=== PATIENT | female | born 1955 | race Caucasian/White ===

== ENCOUNTER 2019-01-24 08:17 | Day surgery (SDC) | payer OTHER ==
[~2019-01-24 08:17] MED LIST: Bupivacaine 0.5% 10 ML SDV ONE; Lactated Ringers 1,000 ML IV SCH; Lidocaine 1% 20 ML MDV ONE; Lidocaine 2% 5 ML SDV ONE; Propofol 200 MG/20 ML SDV ONE; Sodium Chloride 0.9% 10 ML SDV IV PRN; Sodium Chloride 0.9% 10 ML Syringe FLUSH PRN; Sodium Chloride 0.9% 2.5 ML Syringe FLUSH PRN; ceFAZolin 2 GM in Premix Bag 1 BAG IV ONE; fentaNYL 100 MCG/2 ML SDV ONE
--- NOTE | 2019-01-24 09:06 | PCM.PREANE ---
Preanesthetic Assessment - Anesthesia/Transfusion/Family Hx Anesthesia History: Prior Anesthesia Without Reaction Family History of Anesthesia Reaction: No Transfusion History: No Prior Transfusion(s) Intubation History: Unknown - Review of Systems General: No Symptoms Pulmonary: No Symptoms Cardiovascular: No Symptoms Gastrointestinal: No Symptoms Neurological: No Symptoms Other: Reports: None - Physical Assessment Height: 5 ft 2 in Weight: 88.904 kg ASA Class: 3 Mental Status: Alert & Oriented x3 Airway Class: Mallampati = 3 Dentition: Reports: Dentures (upper), Partial (lower) Thyro-Mental Finger Breadths: 2 Mouth Opening Finger Breadths: 3 ROM/Head Extension: Limited/Partial Lungs: Clear to Auscultation, Normal Respiratory Effort Cardiovascular: Regular Rate, Regular Rhythm - Allergies Allergies/Adverse Reactions: Allergies Allergy/AdvReac Type Severity Reaction Status Date / Time prednisone Allergy Numbness Verified 01/21/19 13:41 - Blood Blood Available: No - Anesthesia Plan Pre-Op Medication Ordered: None - Acknowledgements Anesthesia Type Planned: MAC Pt an Appropriate Candidate for the Planned Anesthesia: Yes Alternatives and Risks of Anesthesia Discussed w Pt/Guardian: Yes Pt/Guardian Understands and Agrees with Anesthesia Plan: Yes PreAnesthesia Questionnaire HEENT History: Reports: Other (See Below) Other HEENT History: top denture, bottom partial Cardiovascular History: Reports: Hypertension Other Cardiovascular History: pts daughter states her mother "takes metoprolol and simvastatin because she does not make enough good cholesterol, not because she has high BP or high cholesterol".H/O stroke '13 lost function of right arm, left foot drop and dysphasia, some memory loss and communication problems. Walks with the help of other person. Also wears rt. leg brace. 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: Musculoskeletal History: Reports: Other (See Below) Other Musculoskeletal History: rt sided weakness due to stroke, uses w/c but is able to assist in transfer from w/c to bed Neurological History: Reports: CVA, Other (See Below) Other Neuro History: stroke in 2013, rt sided weakness and aphasia Psychiatric History: Reports: None Endocrine/Metabolic History: Reports: Obesity/BMI 30+ Hematologic History: Reports: None Immunologic History: Reports: None Oncologic (Cancer) History: Reports: Lung Dermatologic History: Reports: None - Past Surgical History Head Surgeries/Procedures: Reports: None HEENT Surgical History: Reports: None Cardiovascular Surgical History: Reports: None Respiratory Surgical History: Reports: None GI Surgical History: Reports: None Female Surgical History: Reports: Tubal Ligation Endocrine Surgical History: Reports: None Neurological Surgical History: Reports: None Musculoskeletal Surgical History: Reports: None Oncologic Surgical History: Reports: Other (See Below) Other Oncologic Surgeries/Procedures: lt. side paul-a- cath placement 06/10 Dermatological Surgical History: Reports: None - SUBSTANCE USE Smoking Status *Q: Former Smoker Tobacco Use Within Last Twelve Months: No Recreational Drug Use History: No - HOME MEDS Home Medications: Home Meds Metoprolol Tartrate 1 tab PO BID 04/07/14 [History] Simvastatin [Zocor] 1 tab PO DAILY 04/07/14 [History] Albuterol Sulfate 1 inhalation NEB Q4H 01/21/19 [History] Budesonide [Pulmicort] 1 inhalation NEB BID 01/21/19 [History] Warfarin Sodium [Jantoven] 2.5 mg PO DAILY 01/21/19 [History] - CURRENT (IN HOUSE) MEDS Current Meds: Current Medications Lactated Ringer's (Ringers, Lactated) 1,000 mls @ 125 mls/hr IV ASDIRECTED ELIZABETH Sodium Chloride (Saline Flush) 10 ml FLUSH ASDIRECTED PRN PRN Reason: Keep Vein Open Sodium Chloride (Saline Flush) 2.5 ml FLUSH ASDIRECTED PRN PRN Reason: Keep Vein Open Sodium Chloride (Normal Saline) 10 ml IV ASDIRECTED PRN PRN Reason: IV Use Discontinued Medications Bupivacaine HCl (Sensorcaine-Mpf 0.5%) Confirm Administered Dose 10 ml .ROUTE .STK-MED ONE Stop: 01/24/19 07:47 Fentanyl (Sublimaze) Confirm Administered Dose 100 mcg .ROUTE .STK-MED ONE Stop: 01/24/19 06:52 Cefazolin Sodium/Dextrose 2 gm (/ Premix) 50 mls @ 100 mls/hr IV ONETIME ONE Stop: 01/18/19 15:37 Lidocaine (Xylocaine-Mpf 2%) Confirm Administered Dose 5 ml .ROUTE .STK-MED ONE Stop: 01/24/19 06:52 Lidocaine HCl (Xylocaine 1%) Confirm Administered Dose 20 ml .ROUTE .STK-MED ONE Stop: 01/24/19 07:47 Propofol (Diprivan 20 Ml) Confirm Administered Dose 200 mg .ROUTE .STK-MED ONE Stop: 01/24/19 06:52
[2019-01-24] MEDS ORDERED: ceFAZolin/Dextrose,Iso-Osmotic 2 GM/50 ML Duplex Bag IV ONE (10:14)
[2019-01-24] MEDS ORDERED: Octyl 2-Cyanoacrylate 1 Tube ONE (10:37)
--- NOTE | 2019-01-24 10:45 | PCM.OPNOTE ---
- General Post-Op/Procedure Note Date of Surgery/Procedure: 01/24/19 Operative Procedure(s): port-a-cath removal Findings: port-a-cath intact Pre Op Diagnosis: lung cancer Post-Op Diagnosis: same Anesthesia Technique: MAC Primary Surgeon: Moon Nielsen Pathology: intact port-a-cath Fluid Replacement, Intraop: 500 EBL in mLs: 2 Condition: Good
[2019-01-24 11:00] VITALS: BP 93/64; PULSE 82
--- NOTE | 2019-01-24 11:27 | PCM.POSTAN ---
POST ANESTHESIA ASSESSMENT - MENTAL STATUS Mental Status: Alert, Oriented - RESPIRATORY Respiratory Status: Respiratory Rate WNL, Airway Patent, O2 Saturation Stable - CARDIOVASCULAR CV Status: Pulse Rate WNL, Blood Pressure Stable - GASTROINTESTINAL GI Status: No Symptoms - PAIN Pain Score: 0 - POST OP HYDRATION Hydration Status: Adequate & Stable - OBSERVATIONS Free Text/Narrative:: No anesthesia problems, patient skipped recovery room stage of postoperative care
--- NOTE | 2019-01-24 15:11 | OR ---
SURGEON: MOON NIELSEN MD DATE OF PROCEDURE: 01/24/2019 PREOPERATIVE DIAGNOSIS: Lung cancer. POSTOPERATIVE DIAGNOSIS: Lung cancer. PROCEDURE PERFORMED: Port-A-Cath removal. PRIMARY SURGEON: Moon Nielsen MD. PULP PILER: salon shampoo assistant: Zehra Marie DO. ANESTHESIA: MAC. FLUIDS: 500 mL crystalloid. ESTIMATED BLOOD LOSS: 2 mL. FINDINGS: Intact left internal jugular Port-A-Cath. COMPLICATIONS: None. INDICATIONS: The patient is a 63-year-old female who has completed chemotherapy and treatment for lung cancer. She has been cleared for removal of her Port-A-Cath. The patient and I discussed the procedure, expected perioperative course, and risks including bleeding, infection, or damage to surrounding structures. The patient verbalized understanding and wishes to proceed. PROCEDURE IN DETAIL: The patient was brought into the OR and placed on the OR table in supine position. A time-out was completed verifying the patient's name, age, date of , allergies, and procedure to be performed. Monitored anesthesia care was induced. The chest and neck were prepped and draped in usual standard fashion. I anesthetized the area overlying the Port-A-Cath device on the anterior chest wall with 0.5% Marcaine plain. A 15 blade was used to open up the patient's previous scar. Cautery was then used to dissect down through the level of the subcutaneous fat down to the Port-A-Cath device. The scar capsule was opened using electrocautery. The patient's previous Prolene stitches were removed and passed off the field. The last attachments of the scar capsule were taken down. Pressure was held on the left side of the lower neck and the Port-A-Cath device removed. It was passed off the field and sent to pathology. Pressure was held on the neck for approximately 1 minute. I then inspected my operative field and appeared to be hemostatic. Cautery was used to achieve local hemostasis. The wound was then closed with interrupted 3-0 Vicryl in the subcutaneous fat layer and the skin was closed with running 4-0 Monocryl stitch. Dermabond and a sterile dressing were applied. All counts were complete and correct at the end of the case. The patient was awoken and taken to the PACU in stable condition. CYNTHIA / KARINA /[id number]
== END 2019-01-24 11:30 | disposition home or self-care (01) ==
LOC: MW.SDS 08:17
PROVIDERS: ATTEND Surgery
DX: Z45.2 Encounter for adjustment and management of vascular access device (principal); E78.5 Hyperlipidemia, unspecified; C34.10 Malignant neoplasm of upper lobe, unspecified bronchus or lung; J44.9 Chronic obstructive pulmonary disease, unspecified; E66.9 Obesity, unspecified; Z68.35 Body mass index [BMI] 35.0-35.9, adult; Z87.891 Personal history of nicotine dependence; Z79.01 Long term (current) use of anticoagulants; Z88.8 Allergy status to other drugs, medicaments and biological substances; Z79.899 Other long term (current) drug therapy
CPT/HCPCS: 36590; A9270; J0690; J2001; J2704; J3010; J3490; J7120; 00300; 88300

== ENCOUNTER 2023-10-21 19:35 | Emergency (ER) | payer MEDICARE, OTHER ==
[2023-10-21] MEDS: Sodium Chloride 0.9% 1,000 ML IV ONE (20:45)
[2023-10-21] MEDS: Morphine 4 MG/ML Syringe IVPUSH ONE (20:46)
[2023-10-21] MEDS: Ondansetron 4 MG/2 ML SDV IVPUSH ONE (20:46)
[2023-10-21] MEDS: Ketorolac 30 MG/ML SDV IVPUSH ONE (20:46)
[2023-10-21 20:56] LABS: BASOPHILS ABSOLUTE AUTO 0.04 K/uL (0.00-0.20); BASOPHILS PERCENT AUTO 0.5 % (0.0-1.0); EOSINOPHILS ABSOLUTE AUTO 0.06 K/uL (0.00-0.45); EOSINOPHILS PERCENT AUTO 0.7 % (0.0-6.0); HEMATOCRIT 39.4 % (37.0-47.0); HEMOGLOBIN 12.9 g/dL (12.0-16.0); IMMATURE GRAN ABSOLUTE AUTO 0.03 K/uL (0.00-0.05); IMMATURE GRAN PERCENT AUTO 0.3 % (0.0-0.4); LYMPHOCYTES ABSOLUTE AUTO 1.77 K/uL (1.00-4.80); LYMPHOCYTES PERCENT AUTO 20.5 % (24.0-44.0); MEAN CORPUSCULAR HEMOGLOBIN 29.8 pg (28.0-32.0); MEAN CORPUSCULAR HGB CONC 32.7 g/dL (32.0-36.0); MEAN PLATELET VOLUME 8.5 fL (9.4-12.3); MONOCYTES ABSOLUTE AUTO 0.89 K/uL (0.00-0.80); MONOCYTES PERCENT AUTO 10.3 % (0.0-8.0); NEUTROPHILS ABSOLUTE AUTO 5.83 K/uL (1.80-7.70); NEUTROPHILS PERCENT AUTO 67.7 % (41.0-71.0); PLATELET COUNT,PLT 334 K/uL (150-400); RED BLOOD CELL COUNT 4.33 M/uL (4.10-5.30); WHITE BLOOD CELL COUNT,WBC 8.62 K/uL (3.9-11.3)
[2023-10-21] MEDS: HYDROmorphone 0.5 MG/0.5 ML Syringe IVPUSH ONE (21:10)
[2023-10-21 21:24] LABS: A/G RATIO 0.6 (0.9-1.6); BILIRUBIN TOTAL 0.1 mg/dL (0.2-1.0); CALCIUM 9.4 mg/dL (8.5-10.1); CARBON DIOXIDE,CO2 27.3 mmol/L (21.0-32.0); EST CRCL DRUG DOSING (CG) 41.99 mL/min; MAGNESIUM 1.8 mg/dL (1.8-2.4); POTASSIUM,K 3.7 mmol/L (3.5-5.1); PROTEIN TOTAL,TP 8.1 g/dL (6.4-8.2)
[2023-10-21 21:25] LABS: LACTIC ACID 1.7 mmol/L (0.4-2.0)
[2023-10-21] MEDS: Iopamidol 755 MG/ML 500 ML Multipack Bottle IVPUSH ONE (22:46)
[2023-10-21 23:39] LABS: APPEARANCE,URINE CLEAR; BILIRUBIN,URINE NEGATIVE (NEGATIVE); COLOR,URINE YELLOW; GLUCOSE,URINE NEGATIVE (NEGATIVE); KETONES,URINE TRACE mg/dL (NEGATIVE); LEUKOCYTE ESTERASE,URINE NEGATIVE (NEGATIVE); NITRITE,URINE POSITIVE (NEGATIVE); OCCULT BLOOD,URINE TRACE-INTACT (NEGATIVE); PROTEIN,URINE NEGATIVE (NEGATIVE); UROBILINOGEN,URINE 0.2 EU/dL (<2.0)
[2023-10-21 23:46] LABS: BACTERIA,URINE FEW (NEGATIVE); EPITHELIAL CELLS,URINE FEW (NONE-FEW); WBC,URINE 0-2 (0-5/HPF)
[2023-10-22] MEDS: cefTRIAXone 1 GM in Sodium Chloride 0.9% 50 ML IV ONE (00:33)
[2023-10-22 01:19] VITALS: BP 107/74; PULSE 105
== END 2023-10-22 01:17 | disposition home or self-care (01) ==
LOC: MW.ED 19:35
DX: N39.0 Urinary tract infection, site not specified (principal); M54.50 Low back pain, unspecified; I10 Essential (primary) hypertension; E66.9 Obesity, unspecified; Z68.33 Body mass index [BMI] 33.0-33.9, adult; Z88.8 Allergy status to other drugs, medicaments and biological substances; Z79.51 Long term (current) use of inhaled steroids; Z79.01 Long term (current) use of anticoagulants; Z79.899 Other long term (current) drug therapy; Z86.73 Personal history of transient ischemic attack (TIA), and cerebral infarction without residual deficits; Z75.8 Other problems related to medical facilities and other health care
CPT/HCPCS: 36415; 74177; 80053; 81001; 83605; 83690; 83735; 84484; 85025; 87040; 93005; 96361; 96365; 96375; 99285; J0696; J1170; J1885; J2270; J2405; J3490; J7030; Q9967; 93010; 99284